=== PATIENT | female | born 1965 | race Caucasian/White ===

== ENCOUNTER 2016-12-08 16:35 | Emergency (ER) | payer OTHER ==
[2016-12-08 16:41] VITALS: BP 149/83; PULSE 74; TEMP 97.8; BMI 27.8
--- NOTE | 2016-12-08 17:30 | PDOC ---
History of Present Illness - General Chief Complaint: Injury Stated Complaint: PAIN Time Seen by Provider: 12/08/16 16:58 History Source: Patient Exam Limitations: No Limitations - History of Present Illness Initial Comments: 12/08/16 17:23 51 yr female with pain to left knee for one week. 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 Pt denies trauma, no fall. Lower Extremity Pain Location: left: knee Lower Ext. Injury Location - Specific Injury Location Knees: left pain Past History - Past Medical History Allergies/Adverse Reactions: Allergies Allergy/AdvReac Type Severity Reaction Status Date / Time Anesthetics - Amide Type Allergy Severe Rash Verified 12/08/16 16:38 Anesthetics - Maria A Type- Allergy Severe Rash Verified 12/08/16 16:38 Parabens [Anesthetics - Maria A Type] clindamycin Allergy Severe Rash Verified 12/08/16 16:38 codeine [Codeine] Allergy Severe Rash Verified 12/08/16 16:38 Penicillins Allergy Severe Rash Verified 12/08/16 16:38 Home Medications: Ambulatory Orders Losartan Potassium [Cozaar -] 100 mg PO DAILY 03/21/14 Simvastatin [Zocor -] 80 mg PO HS 03/21/14 Diphenhydramine HCl [Benadryl -] 25 mg PO Q6H 07/20/15 Hydrochlorothiazide [Hctz -] 25 mg PO DAILY 07/20/15 Acetaminophen/Caffeine/Butalb [Fioricet -] 1 tab PO Q6H #32 tablet MDD 4 Methocarbamol [Robaxin -] 500 mg PO TID #30 tablet 05/24/16 Naproxen [Naprosyn -] 500 mg PO BID PRN #14 tablet 12/08/16 HTN: Yes Hypercholesterolemia: Yes Suicide Attempt (Hx): No Other medical history: scoliosis - Family Disease History Family Disease History: Heart Disease: Father ([place]), Other: Mother (HTN), Brother (HTN), Sister (HTN) - Reproductive History Uterine Fibroids: Yes - Immunization History Immunization Up to Date: No - Psycho/Social/Smoking Cessation Hx Anxiety: No Suicidal Ideation: No Smoking Status: No Smoking History: Never smoked Number of Cigarettes Smoked Daily: 0 Information on smoking cessation initiated: No Hx Alcohol Use: No Drug/Substance Use Hx: No Substance Use Type: None Review of Systems - Review of Systems Able to Perform ROS?: Yes Is the patient limited Japanese proficient: No Constitutional: No: Symptoms Reported HEENTM: No: Symptoms Reported Respiratory: No: Symptoms reported Cardiac (ROS): No: Symptoms Reported ABD/GI: No: Symptoms Reported Musculoskeletal: Yes: Symptoms Reported Integumentary: No: Symptoms Reported Neurological: No: Symptoms reported *Physical Exam - Vital Signs Last Vital Signs Temp Pulse Resp BP Pulse Ox 97.8 F 74 18 149/83 100 12/08/16 16:38 12/08/16 16:38 12/08/16 16:38 12/08/16 16:38 12/08/16 16:38 - Physical Exam General Appearance: Yes: Nourished, Appropriately Dressed HEENT: positive: EOMI, JORGE, Normal ENT Inspection, TMs Normal, Pharynx Normal Neck: positive: Supple. negative: Tender Respiratory/Chest: positive: Lungs Clear, Normal Breath Sounds Cardiovascular: positive: Regular Rhythm, Regular Rate Gastrointestinal/Abdominal: positive: Normal Bowel Sounds, Soft Procedures - Splinting Pre-Made Type: knee immobilizer ED Treatment Course - RADIOLOGY Radiology Studies Ordered: Category Date Time Status KNEE 3 POS-LEFT [RAD] Stat Radiology 12/08/16 17:11 Ordered Medical Decision Making - Medical Decision Making 12/08/16 17:27 cc: left knee pain for one week no trauma will xray to r/o fracture pt is ambulatory no distress 12/08/16 17:[address] knee immobilizer naprosyn for pain follow up with the orthopedist pt aware of plan of care all questions asked and answered 12/08/16 18:29 *DC/Admit/Observation/Transfer Diagnosis at time of Disposition: Knee pain, left Qualifiers: Chronicity: acute Qualified Code(s): M25.562 - Pain in left knee - Discharge Dispostion Disposition: HOME Condition at time of disposition: Good - Prescriptions Prescriptions: Naproxen [Naprosyn -] 500 mg PO BID PRN #14 tablet PRN Reason: Pain - Referrals Referrals: Edilma Colón NP [Primary Care Provider] - Wilfrid Castle MD [Staff Physician] - - Patient Instructions Additional Instructions: follow with the orthopedist for follow up in 5-7 days take naprosyn for pain remove the splint to sleep and bathe use splint to help with ambulation for 3 days
== END 2016-12-08 21:12 | disposition home or self-care (01) ==
LOC: JERFT 16:35
PROC: 2W3MX1Z Immobilization of Left Lower Extremity using Splint (ICD-10-PCS; principal; 2016-12-08)
DX: M25.562 Pain in left knee (principal); I10 Essential (primary) hypertension; E78.00 Pure hypercholesterolemia, unspecified; M41.9 Scoliosis, unspecified
CPT/HCPCS: 29530; 73562-TC-LT; 99281-25

== ENCOUNTER 2018-02-22 11:10 | Observation (INO) | payer OTHER ==
[2018-02-22 11:32] VITALS: BMI 27.4
--- NOTE | 2018-02-22 12:20 | PDOC ---
History of Present Illness <Alyssa Nash - Last Filed: 02/22/18 15:38> - History of Present Illness Initial Comments: 02/22/18 12:20 Ms. Haro is a 52 yo female w/ pmh of hypertension, HLD, and ovarian cysts who presents complaining of elevated blood pressure per home monitor (180's systolic) with coinciding shortness of breath with chest pressure she describes as tight. She also reports dry cough at this time. Last night she took extra of her home BP medications and BP decreased to 160's. When she woke up this morning it was elevated again. She called her PCP at this time who suggested she present to ER for evaluation. She denies any further symptoms of chest pain/ pressure at this time. The patient denies headache and dizziness. Denies fever, chills, nausea, vomit, diarrhea and constipation. Denies dysuria, frequency, urgency and hematuria. 02/22/18 15:28 <Bonifacio Arthur - Last Filed: 02/22/18 15:58> - General Chief Complaint: Blood Pressure Problem Stated Complaint: BLOOD PRESSURE PROBLEM Time Seen by Provider: 02/22/18 12:19 Past History <Alyssa Nash - Last Filed: 02/22/18 15:38> - Past Medical History COPD: No HTN: Yes Hypercholesterolemia: Yes Other medical history: BACK PAIN, ARITHRITIS - Family Disease History Family Disease History: Heart Disease: Father ([place]), Other: Mother (HTN), Brother (HTN), Sister (HTN) - Reproductive History Uterine Fibroids: Yes - Immunization History Immunization Up to Date: No - Suicide/Smoking/Psychosocial Hx Smoking Status: No Smoking History: Never smoked Have you smoked in the past 12 months: No Number of Cigarettes Smoked Daily: 0 Information on smoking cessation initiated: No Hx Alcohol Use: No Drug/Substance Use Hx: No Substance Use Type: None <Bonifacio Arthur - Last Filed: 02/22/18 15:58> - Past Medical History Allergies/Adverse Reactions: Allergies Allergy/AdvReac Type Severity Reaction Status Date / Time Anesthetics - Amide Type Allergy Severe Rash Verified 02/22/18 11:28 Anesthetics - Maria A Type- Allergy Severe Rash Verified 02/22/18 11:28 Parabens [Anesthetics - Maria A Type] clindamycin Allergy Severe Rash Verified 02/22/18 11:28 codeine [Codeine] Allergy Severe Rash Verified 02/22/18 11:28 Penicillins Allergy Severe Rash Verified 02/22/18 11:28 Home Medications: Ambulatory Orders Losartan Potassium [Cozaar -] 100 mg PO DAILY 03/21/14 Simvastatin [Zocor -] 80 mg PO HS 03/21/14 Diphenhydramine HCl [Benadryl -] 25 mg PO Q6H 07/20/15 Hydrochlorothiazide [Hctz -] 25 mg PO DAILY 07/20/15 Acetaminophen/Caffeine/Butalb [Fioricet -] 1 tab PO Q6H #32 tablet MDD 4 Methocarbamol [Robaxin -] 500 mg PO TID #30 tablet 05/24/16 Naproxen [Naprosyn -] 500 mg PO BID PRN #14 tablet 12/08/16 Review of Systems - Review of Systems Comments:: 02/22/18 12:22 GENERAL/CONSTITUTIONAL: No fever or chills. No weakness. HEAD, EYES, EARS, NOSE AND THROAT: No change in vision. No ear pain or discharge. No sore throat. CARDIOVASCULAR: +Shortness of breath with chest pressure/tightness as reported. RESPIRATORY: No cough, wheezing, or hemoptysis. GASTROINTESTINAL: No nausea, vomiting, diarrhea or constipation. GENITOURINARY: No dysuria, frequency, or change in urination. MUSCULOSKELETAL: No joint or muscle swelling or pain. No neck or back pain. SKIN: No rash NEUROLOGIC: No headache, vertigo, loss of consciousness, or change in strength/ sensation. ENDOCRINE: No increased thirst. No abnormal weight change HEMATOLOGIC/LYMPHATIC: No anemia, easy bleeding, or history of blood clots. ALLERGIC/IMMUNOLOGIC: No hives or skin allergy. <Bonifacio Arthur - Last Filed: 02/22/18 15:58> *Physical Exam - Vital Signs Last Vital Signs Temp Pulse Resp BP Pulse Ox 98.5 F 75 18 162/99 100 02/22/18 11:29 02/22/18 11:29 02/22/18 11:29 02/22/18 11:29 02/22/18 11:29 <Alyssa Nash - Last Filed: 02/22/18 15:38> - Vital Signs Last Vital Signs Temp Pulse Resp BP Pulse Ox 98.5 F 75 18 162/99 100 02/22/18 11:29 02/22/18 11:29 02/22/18 11:29 02/22/18 11:29 02/22/18 11:29 - Physical Exam Comments: 02/22/18 12:22 GENERAL: Awake, alert, and fully oriented, in no acute distress HEAD: No signs of trauma, normocephalic, atraumatic EYES: PERRLA, EOMI, sclera anicteric, conjunctiva clear ENT: Auricles normal inspection, hearing grossly normal, nares patent, oropharynx clear without exudates. Moist mucosa NECK: Normal ROM, supple, no lymphadenopathy, JVD, or masses LUNGS: No distress, speaks full sentences, clear to auscultation bilaterally HEART: Regular rate and rhythm, normal S1 and S2, no murmurs, rubs or gallops, peripheral pulses normal and equal bilaterally. ABDOMEN: Soft, nontender, normoactive bowel sounds. No guarding, no rebound. No masses EXTREMITIES: Normal inspection, Normal range of motion, no edema. No clubbing or cyanosis. NEUROLOGICAL: Cranial nerves II through XII grossly intact. Normal speech, normal gait, no focal sensorimotor deficits SKIN: Warm, Dry, normal turgor, no rashes or lesions noted. <Bonifacio Arthur - Last Filed: 02/22/18 15:58> Heart Score/ECG Review - History History: Moderately suspicious - Electrocardiogram EKG: Normal - Age Age: 45-65 - Risk Factors Risk Factors Heart Score: Yes Hx Hypercholesterolemia, Yes Hx Hypertension, Yes Positive family hx of cardiac disease Based on the list above the patient has:: >/=3 risk factors or Hx atherosclerotic disease - Troponin Troponin: </= normal limit - Score Heart Score - Total: 4 <Bonifacio Arthur - Last Filed: 02/22/18 15:58> ED Treatment Course - LABORATORY CBC & Chemistry Diagram: 02/22/18 14:10 02/22/18 14:10 - ADDITIONAL ORDERS Additional order review: Laboratory Results 02/22/18 02/22/18 14:10 14:10 Sodium 140 Potassium 4.2 Chloride 105 Carbon Dioxide 32 Anion Gap 3 L BUN 11 Creatinine 0.8 Creat Clearance w eGFR > 60 Random Glucose 137 H Calcium 9.2 Total Bilirubin 0.5 D AST 22 ALT 40 Alkaline Phosphatase 100 Creatine Kinase 185 Creatine Kinase Index 0.9 CK-MB (CK-2) 1.847 Troponin I < 0.02 Total Protein 7.7 Albumin 4.3 Urine Color Straw Urine Appearance Clear Urine pH 7.0 Ur Specific [place] 1.010 Urine Protein Negative Urine Glucose (UA) Negative Urine Ketones Negative Urine Blood Negative Urine Nitrite Negative Urine Bilirubin Negative Urine Urobilinogen Negative Ur Leukocyte Esterase Negative 02/22/18 14:10 RBC 4.67 MCV 86.9 MCHC 34.3 RDW 13.5 MPV 9.7 Neutrophils % 52.4 Lymphocytes % 42.1 H Monocytes % 4.5 Eosinophils % 0.5 Basophils % 0.5 - RADIOLOGY Radiology Studies Ordered: Category Date Time Status CHEST PA & LAT [RAD] Stat Radiology 02/22/18 13:43 Taken <Alyssa Nash - Last Filed: 02/22/18 15:38> - LABORATORY CBC & Chemistry Diagram: 02/22/18 14:10 02/22/18 14:10 <Bonifacio Arthur - Last Filed: 02/22/18 15:58> Medical Decision Making - Medical Decision Making 02/22/18 15:55 Ms. Haro is a 52 yo female w/ pmh as described who presents for evaluation of chest pressure / tightness yesterday. Patient reports resolution of symptoms at this time however history is very concerning. Labs grossly wnl as below. HEART score 4. Patient admitted to [facility] obs under Dr. Ruffin for further evaluation. Laboratory Results - last 24 hr 02/22/18 02/22/18 02/22/18 14:10 14:10 14:10 WBC 4.9 D RBC 4.67 Hgb 13.9 Hct 40.6 MCV 86.9 MCH 29.8 MCHC 34.3 RDW 13.5 Plt Count 221 MPV 9.7 Neutrophils % 52.4 Lymphocytes % 42.1 H Monocytes % 4.5 Eosinophils % 0.5 Basophils % 0.5 Sodium 140 Potassium 4.2 Chloride 105 Carbon Dioxide 32 Anion Gap 3 L BUN 11 Creatinine 0.8 Creat Clearance w eGFR > 60 Random Glucose 137 H Calcium 9.2 Total Bilirubin 0.5 D AST 22 ALT 40 Alkaline Phosphatase 100 Creatine Kinase 185 Creatine Kinase Index 0.9 CK-MB (CK-2) 1.847 Troponin I < 0.02 Total Protein 7.7 Albumin 4.3 Urine Color Straw Urine Appearance Clear Urine pH 7.0 Ur Specific [place] 1.010 Urine Protein Negative Urine Glucose (UA) Negative Urine Ketones Negative Urine Blood Negative Urine Nitrite Negative Urine Bilirubin Negative Urine Urobilinogen Negative Ur Leukocyte Esterase Negative <Bonifacio Arthur - Last Filed: 02/22/18 15:58> *DC/Admit/Observation/Transfer - Discharge Dispostion Admit: Yes <Alyssa Nash - Last Filed: 02/22/18 15:38> - Discharge Dispostion Admit: Yes <Bonifacio Arthur - Last Filed: 02/22/18 15:58> Diagnosis at time of Disposition: Essential hypertension Chest pain Qualifiers: Chest pain type: unspecified Qualified Code(s): R07.9 - Chest pain, unspecified - Referrals Referrals: ON STAFF,NOT [Primary Care Provider] - - Patient Instructions - Post Discharge Activity
[2018-02-22 14:31] LABS: BASO % 0.5 % (0-2.0); EOS % 0.5 % (0-4.5); HEMATOCRIT 40.6 % (32.4-45.2); HEMOGLOBIN 13.9 GM/dL (10.7-15.3); LYMPH % 42.1 % (8-40); MCH 29.8 pg (25.7-33.7); MCHC 34.3 g/dl (32.0-36.0); MEAN CELL VOLUME 86.9 fl (80-96); MEAN PLT VOLUME 9.7 fl (7.5-11.1); MONO % 4.5 % (3.8-10.2); NEUT % 52.4 % (42.8-82.8); PLATELET COUNT 221 K/MM3 (134-434); RBC 4.67 M/mm3 (3.60-5.2); RDW 13.5 % (11.6-15.6); WHITE BLOOD COUNT 4.9 K/mm3 (4.0-10.0)
[2018-02-22 14:46] LABS: URINE APPEARANCE CLEAR; URINE BILIRUBIN NEGATIVE (<2.0 mg/dL); URINE BLOOD NEGATIVE (NEGATIVE); URINE COLOR STRAW; URINE GLUCOSE (UA) NEGATIVE (NEGATIVE); URINE KETONE NEGATIVE (NEGATIVE); URINE LEUK ESTERASE NEGATIVE (NEGATIVE); URINE NITRITE NEGATIVE (NEGATIVE); URINE PROTEIN NEGATIVE (NEGATIVE); URINE UROBILINOGEN NEGATIVE mg/dL (0.2-1.0)
[2018-02-22 14:48] LABS: ALBUMIN 4.3 g/dl (3.4-5.0); ANION GAP 3 (8-16); BILIRUBIN,TOTAL 0.5 mg/dL (0.2-1.0); BLOOD UREA NITROGEN 11 mg/dL (7-18); CALCIUM 9.2 mg/dL (8.5-10.1); CHLORIDE 105 mmol/L (98-107); CO2 32 mmol/L (21-32); CREATININE 0.8 mg/dL (0.55-1.02); GLUCOSE,RANDOM 137 mg/dL (74-106); POTASSIUM 4.2 mmol/L (3.5-5.1); SGOT/AST 22 U/L (15-37); SGPT/ALT 40 U/L (12-78); SODIUM 140 mmol/L (136-145); TOT PROT 7.7 g/dl (6.4-8.2)
[2018-02-22 14:51] LABS: ALK PHOS 100 U/L (45-117)
--- NOTE | 2018-02-22 15:19 | PDOC ---
Attending Attestation - Resident Resident Name: Bonifacio Arthur - ED Attending Attestation I have performed the following: I have examined & evaluated the patient, The case was reviewed & discussed with the resident, I agree w/resident's findings & plan, Exceptions are as noted - Medical Decision Making 02/22/18 15:16 52-year-old female history of hypertension hyperlipidemia and family history of heart disease here today complaining of chest pressure with associated shortness of breath and diaphoresis last p.m. At the time patient checked her blood pressure which is elevated to 180 systolic. States she had seen her PCP 1 week ago and was called to tell that her cholesterol was elevated despite being on atorvastatin 80 mg but has not been able to return. He states that she is chest pain-free but was concerned because her blood pressure has been persistently elevated over the last 24 hours. Denies headache no vision changes no other complaints Exam is unremarkable Differential includes symptomatic hypertension, end organ damage such as renal failure, anemia, anginal equivalent, plan EKG chest x-ray labs with troponin we' ll give the patient aspirin. <Alyssa Nash - Last Filed: 02/22/18 15:38> - HPI HPI: 02/22/18 15:43 Pt is a 52 yo F with a PMHx of HTN, HLD, Back pain, Arthritis who presents to the ED with chest pressure for the past day. Patient reports experiencing back pain and chest pressure, 7/10in severity, associated with SOB and diaphoresis last night. Patient measured her BP which was elevated to 185/101. Patient took double dose of BP medications last night. Patient called his PCP and was sent to the ED for further evaluation. Family Hx: Uncle, father, brother with cardiac disease. - Physicial Exam PE: 02/22/18 15:43 GENERAL: Awake, alert, and fully oriented, in no acute distress HEAD: No signs of trauma EYES: PERRLA, EOMI, sclera anicteric, conjunctiva clear ENT: Auricles normal inspection, nares patent, Moist mucosa NECK: Normal ROM, supple, no lymphadenopathy, JVD, or masses LUNGS: Breath sounds equal, clear to auscultation bilaterally. No wheezes, and no crackles HEART: Regular rate and rhythm, normal S1 and S2, no murmurs, rubs or gallops ABDOMEN: Soft, nontender, normoactive bowel sounds. No guarding, no rebound. No masses EXTREMITIES: Normal range of motion, no edema. No clubbing or cyanosis. No cords, erythema, or tenderness NEUROLOGICAL: Normal speech SKIN: Warm, Dry, normal turgor, no rashes or lesions noted. - Medical Decision Making 02/22/18 15:43 Documentation prepared by Bertha Smith, acting as medical case manager for Alyssa Nash MD, /DO. <Bertha Smith - Last Filed: 02/22/18 15:43> Heart Score/ECG Review - History History: Highly suspicious - Electrocardiogram EKG: Normal - Age Age: 45-65 - Risk Factors Risk Factors Heart Score: Yes Hx Hypercholesterolemia, Yes Hx Hypertension, Yes Positive family hx of cardiac disease Based on the list above the patient has:: >/=3 risk factors or Hx atherosclerotic disease - Troponin Troponin: </= normal limit - Score Heart Score - Total: 5 #1 General ECG Interpretation: Sinus Rhythm, Normal Rate (71), Normal Intervals, No acute ischemic changes <Alyssa Nash - Last Filed: 02/22/18 15:38>
--- NOTE | 2018-02-22 20:30 | HP ---
Admitting History and Physical - Primary Care Physician PCP: Frankie Ruffin - Admission History of Present Illness: 52 yo female w/ pmh of hypertension, HLD, and ovarian cysts who presents complaining of elevated blood pressure per home monitor (180's systolic) with coinciding shortness of breath with chest pressure she describes as tight. She also reports dry cough at this time. Last night she took extra of her home BP medications and BP decreased to 160's. When she woke up this morning it was elevated again. She called her PCP at this time who suggested she present to ER for evaluation. She denies any further symptoms of chest pain/pressure at this time - Past Medical History Cardiovascular: Yes: HTN, Hyperlipdemia - Smoking History Smoking history: Never smoked Have you smoked in the past 12 months: No Aproximately how many cigarettes per day: 0 - Alcohol/Substance Use Hx Alcohol Use: No Home Medications - Allergies Allergies/Adverse Reactions: Allergies Allergy/AdvReac Type Severity Reaction Status Date / Time Anesthetics - Amide Type Allergy Severe Rash Verified 02/22/18 11:28 Anesthetics - Maria A Type- Allergy Severe Rash Verified 02/22/18 11:28 Parabens [Anesthetics - Maria A Type] clindamycin Allergy Severe Rash Verified 02/22/18 11:28 codeine [Codeine] Allergy Severe Rash Verified 02/22/18 11:28 Penicillins Allergy Severe Rash Verified 02/22/18 11:28 - Home Medications Home Medications: Ambulatory Orders Losartan Potassium [Cozaar -] 100 mg PO DAILY 03/21/14 Simvastatin [Zocor -] 80 mg PO HS 03/21/14 Diphenhydramine HCl [Benadryl -] 25 mg PO Q6H 07/20/15 Hydrochlorothiazide [Hctz -] 25 mg PO DAILY 07/20/15 Acetaminophen/Caffeine/Butalb [Fioricet -] 1 tab PO Q6H #32 tablet MDD 4 Methocarbamol [Robaxin -] 500 mg PO TID #30 tablet 05/24/16 Naproxen [Naprosyn -] 500 mg PO BID PRN #14 tablet 12/08/16 Physical Examination Vital Signs: Vital Signs Temperature 98.5 F 02/22/18 11:29 Pulse Rate 75 02/22/18 11:29 Respiratory Rate 18 02/22/18 11:29 Blood Pressure 162/99 02/22/18 11:29 O2 Sat by Pulse Oximetry (%) 100 02/22/18 11:29 Constitutional: Yes: No Distress HENT: Yes: Atraumatic Neck: Yes: Supple Cardiovascular: Yes: Regular Rate and Rhythm Respiratory: Yes: CTA Bilaterally Gastrointestinal: Yes: Normal Bowel Sounds Extremities: Yes: WNL Neurological: Yes: Alert, Oriented Labs: CBC, BMP 02/22/18 14:10 02/22/18 14:10 Problem List - Problems (1) Chest pain Assessment/Plan: tele monitoring fu cardiac enzymes cardiology consult Code(s): R07.9 - CHEST PAIN, UNSPECIFIED Qualifiers: Chest pain type: unspecified Qualified Code(s): R07.9 - Chest pain, unspecified (2) Essential hypertension Assessment/Plan: will monitor on meds Code(s): I10 - ESSENTIAL (PRIMARY) HYPERTENSION Assessment/Plan Laboratory Tests 02/22/18 02/22/18 02/22/18 14:10 14:10 14:10 WBC 4.9 D RBC 4.67 Hgb 13.9 Hct 40.6 MCV 86.9 MCH 29.8 MCHC 34.3 RDW 13.5 Plt Count 221 MPV 9.7 Neutrophils % 52.4 Lymphocytes % 42.1 H Monocytes % 4.5 Eosinophils % 0.5 Basophils % 0.5 Sodium 140 Potassium 4.2 Chloride 105 Carbon Dioxide 32 Anion Gap 3 L BUN 11 Creatinine 0.8 Creat Clearance w eGFR > 60 Random Glucose 137 H Calcium 9.2 Total Bilirubin 0.5 D AST 22 ALT 40 Alkaline Phosphatase 100 Creatine Kinase 185 Creatine Kinase Index 0.9 CK-MB (CK-2) 1.847 Troponin I < 0.02 Total Protein 7.7 Albumin 4.3 Urine Color Straw Urine Appearance Clear Urine pH 7.0 Ur Specific [place] 1.010 Urine Protein Negative Urine Glucose (UA) Negative Urine Ketones Negative Urine Blood Negative Urine Nitrite Negative Urine Bilirubin Negative Urine Urobilinogen Negative Ur Leukocyte Esterase Negative Active Medications Generic Name Dose Route Start Last Admin Trade Name Freq PRN Reason Stop Dose Admin Acetaminophen 650 mg 02/22/18 21:53 Tylenol - PO Q6H PRN FEVER Amlodipine Besylate 10 mg 02/22/18 20:45 02/23/18 12:32 Norvasc - PO 10 mg DAILY XIANG Administration Atorvastatin Calcium 40 mg 02/22/18 22:00 02/22/18 22:01 Lipitor - PO Not Given HS XIANG Hydrochlorothiazide 25 mg 02/23/18 10:00 02/23/18 12:32 Hctz - PO 25 mg DAILY XIANG Administration Losartan Potassium 100 mg 02/23/18 10:00 02/23/18 12:32 Cozaar - PO 100 mg DAILY XIANG Administration Methocarbamol 500 mg 02/22/18 22:00 02/23/18 13:56 Robaxin - PO 500 mg TID XIANG Administration
[2018-02-22] MEDS ORDERED: amLODIPine BESYLATE 5 MG TABLET (FP) ONE (20:35)
[2018-02-22] MEDS: amLODIPine BESYLATE 10 MG TABLET (FP) PO SCH (20:41)
[2018-02-22] MEDS ORDERED: ACETAMINOPHEN 325 MG TABLET (FP) PO PRN (21:53)
[2018-02-22] MEDS: ATORVASTATIN CA 40 MG TABLET (FP) PO SCH (22:01)
[2018-02-22] MEDS ORDERED: METHOCARBAMOL 500 MG TABLET ONE (23:27)
[2018-02-22] MEDS: METHOCARBAMOL 500 MG TABLET PO SCH (23:38)
--- NOTE | 2018-02-22 23:43 | EKG ---
Test Reason : Blood Pressure : / mmHG Vent. Rate : 071 BPM Atrial Rate : 071 BPM P-R Int : 186 ms QRS Dur : 068 ms QT Int : 398 ms P-R-T Axes : 053 029 020 degrees QTc Int : 432 ms NORMAL SINUS RHYTHM NORMAL ECG WHEN COMPARED WITH ECG OF 20-AUG-2014 02:39, NO SIGNIFICANT CHANGE WAS FOUND Confirmed by KETURAH HUERTA MD ([id number]) on 02/22/2018 11:42:52 PM Referred By: Confirmed By:KETURAH HUERTA MD
[2018-02-23] MEDS: METHOCARBAMOL 500 MG TABLET PO SCH ×3 (06:31→22:27)
[2018-02-23 09:32] LABS: BASO % 0.4 % (0-2.0); HEMATOCRIT 40.3 % (32.4-45.2); HEMOGLOBIN 13.9 GM/dL (10.7-15.3); LYMPH % 47.3 % (8-40); MCH 29.7 pg (25.7-33.7); MCHC 34.4 g/dl (32.0-36.0); MEAN CELL VOLUME 86.6 fl (80-96); MEAN PLT VOLUME 9.6 fl (7.5-11.1); MONO % 5.9 % (3.8-10.2); NEUT % 45.4 % (42.8-82.8); PLATELET COUNT 215 K/MM3 (134-434); RBC 4.66 M/mm3 (3.60-5.2); RDW 13.4 % (11.6-15.6); WHITE BLOOD COUNT 4.7 K/mm3 (4.0-10.0)
[2018-02-23 10:15] LABS: ALBUMIN 4.3 g/dl (3.4-5.0); ALK PHOS 97 U/L (45-117); ANION GAP 8 (8-16); BILIRUBIN,TOTAL 0.8 mg/dL (0.2-1.0); BLOOD UREA NITROGEN 11 mg/dL (7-18); CALCIUM 9.6 mg/dL (8.5-10.1); CHLORIDE 103 mmol/L (98-107); CO2 30 mmol/L (21-32); CREATININE 0.8 mg/dL (0.55-1.02); GLUCOSE,RANDOM 145 mg/dL (74-106); SGOT/AST 23 U/L (15-37); SGPT/ALT 37 U/L (12-78); SODIUM 141 mmol/L (136-145); TOT PROT 7.7 g/dl (6.4-8.2)
--- NOTE | 2018-02-23 10:29 | CON.CARD ---
Consult Consult Specialty:: Cardiology Referred by:: Dr. Ruffin Reason for Consultation:: Cardiac evaluation - History of Present Illness Chief Complaint: Chest pain History of Present Illness: Patient is a 52 year old female with underlying history of hypertension, hypercholesterolemia and ovarian cyst who presents with elevated blood pressure up to systolic pressure of 180's. She complained of mid sternal chest pressure while hypertensive episode. She also complained of mild shortness of breath. She denies palpitations. Currently, she appears asymptomatic. She denies paroxysmal nocturnal dyspnea or orthopnea. She denies fever or chills. She denies nausea, vomiting, diarrhea or abdominal pain. She denies headache or lightheadedness. - History Source History Provided By: Patient, Medical Record Limitations to Obtaining History: No Limitations - Past Medical History Cardio/Vascular: Yes: HTN, Hyperlipdemia Reproductive: Yes: Other (Ovarian cyst) Endocrine: Yes: Other (Pre-diabetes) - Past Surgical History Past Surgical History: Yes: Hysterectomy - Alcohol/Substance Use Hx Alcohol Use: Yes (Social) - Smoking History Smoking history: Never smoked Have you smoked in the past 12 months: No Aproximately how many cigarettes per day: 0 Home Medications - Allergies Allergies/Adverse Reactions: Allergies Allergy/AdvReac Type Severity Reaction Status Date / Time Anesthetics - Amide Type Allergy Severe Rash Verified 02/22/18 11:28 Anesthetics - Maria A Type- Allergy Severe Rash Verified 02/22/18 11:28 Parabens [Anesthetics - Maria A Type] clindamycin Allergy Severe Rash Verified 02/22/18 11:28 codeine [Codeine] Allergy Severe Rash Verified 02/22/18 11:28 Penicillins Allergy Severe Rash Verified 02/22/18 11:28 - Home Medications Home Medications: Ambulatory Orders Losartan Potassium [Cozaar -] 100 mg PO DAILY 03/21/14 Simvastatin [Zocor -] 80 mg PO HS 03/21/14 Diphenhydramine HCl [Benadryl -] 25 mg PO Q6H 07/20/15 Hydrochlorothiazide [Hctz -] 25 mg PO DAILY 07/20/15 Acetaminophen/Caffeine/Butalb [Fioricet -] 1 tab PO Q6H #32 tablet MDD 4 Methocarbamol [Robaxin -] 500 mg PO TID #30 tablet 05/24/16 Naproxen [Naprosyn -] 500 mg PO BID PRN #14 tablet 01/23/17 Family Disease History - Family Disease History Family Disease History: Diabetes: Father (HTN, CABG), Heart Disease: Father, Other: Father, Mother (HTN) Other Family History: CAD, [place] Review of Systems - Review of Systems Constitutional: denies: Chills, Fever Cardiovascular: reports: Chest Pain, Shortness of Breath. denies: Palpitations Respiratory: reports: Cough, SOB. denies: Hemoptysis, Orthopnea, PND Gastrointestinal: denies: Abdominal Pain, Constipation, Diarrhea, Melena, Nausea , Rectal Bleeding, Vomiting Musculoskeletal: reports: Back Pain Neurological: denies: Dizziness, Headache, Seizure, Syncope Vital Signs: Vital Signs Temperature 98.5 F 02/22/18 11:29 Pulse Rate 69 02/23/18 05:56 Respiratory Rate 18 02/23/18 05:56 Blood Pressure 141/77 02/23/18 05:56 O2 Sat by Pulse Oximetry (%) 100 02/23/18 05:56 Eyes: Yes: PERRL HENT: Yes: Atraumatic Neck: Yes: Supple Respiratory: Yes: CTA Bilaterally Gastrointestinal: Yes: Normal Bowel Sounds, Soft. No: Tenderness Cardiovascular: Yes: Regular Rate and Rhythm JVD: No Carotid Bruit: No PMI: Non-Displaced Heart Sounds: Yes: S1, S2 Edema: No - Other Data Labs, Other Data: CBC, BMP 02/23/18 09:06 02/23/18 09:06 Troponin, BNP 02/22/18 02/23/18 14:10 00:01 Troponin I < 0.02 < 0.02 Laboratory Results - last 24 hr 02/22/18 02/22/18 02/22/18 14:10 14:10 14:10 WBC 4.9 D RBC 4.67 Hgb 13.9 Hct 40.6 MCV 86.9 MCH 29.8 MCHC 34.3 RDW 13.5 Plt Count 221 MPV 9.7 Neutrophils % 52.4 Lymphocytes % 42.1 H Monocytes % 4.5 Eosinophils % 0.5 Basophils % 0.5 Sodium 140 Potassium 4.2 Chloride 105 Carbon Dioxide 32 Anion Gap 3 L BUN 11 Creatinine 0.8 Creat Clearance w eGFR > 60 Random Glucose 137 H Calcium 9.2 Total Bilirubin 0.5 D AST 22 ALT 40 Alkaline Phosphatase 100 Creatine Kinase 185 Creatine Kinase Index 0.9 CK-MB (CK-2) 1.847 Troponin I < 0.02 Total Protein 7.7 Albumin 4.3 Urine Color Straw Urine Appearance Clear Urine pH 7.0 Ur Specific [place] 1.010 Urine Protein Negative Urine Glucose (UA) Negative Urine Ketones Negative Urine Blood Negative Urine Nitrite Negative Urine Bilirubin Negative Urine Urobilinogen Negative Ur Leukocyte Esterase Negative 02/23/18 02/23/18 02/23/18 00:01 09:06 09:06 WBC 4.7 RBC 4.66 Hgb 13.9 Hct 40.3 MCV 86.6 MCH 29.7 MCHC 34.4 RDW 13.4 Plt Count 215 MPV 9.6 Neutrophils % 45.4 Lymphocytes % 47.3 H Monocytes % 5.9 Eosinophils % 1.0 D Basophils % 0.4 Sodium 141 Potassium 4.0 Chloride 103 Carbon Dioxide 30 Anion Gap 8 BUN 11 Creatinine 0.8 Creat Clearance w eGFR > 60 Random Glucose 145 H Calcium 9.6 Total Bilirubin 0.8 D AST 23 ALT 37 Alkaline Phosphatase 97 Creatine Kinase 158 Creatine Kinase Index 0.6 CK-MB (CK-2) < 1.000 Troponin I < 0.02 Total Protein 7.7 Albumin 4.3 Urine Color Urine Appearance Urine pH Ur Specific [place] Urine Protein Urine Glucose (UA) Urine Ketones Urine Blood Urine Nitrite Urine Bilirubin Urine Urobilinogen Ur Leukocyte Esterase Normal sinus rhythm with no ST-T abnormality Imaging - Results Chest X-ray: Report Reviewed (Unremarkable) EKG: Report Reviewed Problem List - Problems (1) Hypercholesterolemia Code(s): E78.00 - PURE HYPERCHOLESTEROLEMIA, UNSPECIFIED (2) Chest pain Code(s): R07.9 - CHEST PAIN, UNSPECIFIED Qualifiers: Chest pain type: unspecified Qualified Code(s): R07.9 - Chest pain, unspecified (3) Essential hypertension Code(s): I10 - ESSENTIAL (PRIMARY) HYPERTENSION Assessment/Plan 1. Hypertension - labile 2. Chest pain syndrome probably due to above 3. Hypercholesterolemia 4. Vertebral disc disease PLAN: 1. Continue Losartan, HCTZ and agree with addition of Amlodipine 2. Continue Atrovastatin 40 mg once a day instead of Simvastatin 3. Transthoracic echocardiography to assess LV/RV and valvular function 4. Analgesics PRN 5. Follow fasting lipid panel, but can be done as outpatient If above negative and BP controlled, discharge planning and follow up as outpatient Esvin Craig MD
[2018-02-23] MEDS: LOSARTAN POTASSIUM 50 MG TABLET (FP) PO SCH (12:32)
[2018-02-23] MEDS: HYDROCHLOROTHIAZIDE 25 MG TABLET (FP) PO SCH (12:32)
[2018-02-23] MEDS: amLODIPine BESYLATE 10 MG TABLET (FP) PO SCH (12:32)
--- NOTE | 2018-02-23 17:38 | DS ---
Physical Examination Vital Signs: Vital Signs Temperature 98.4 F 02/23/18 12:23 Pulse Rate 77 02/23/18 12:23 Respiratory Rate 18 02/23/18 16:19 Blood Pressure 127/77 02/23/18 12:23 O2 Sat by Pulse Oximetry (%) 100 02/23/18 16:19 Constitutional: Yes: No Distress HENT: Yes: Atraumatic Neck: Yes: Supple Cardiovascular: Yes: Regular Rate and Rhythm Respiratory: Yes: CTA Bilaterally Gastrointestinal: Yes: Normal Bowel Sounds Extremities: Yes: WNL Edema: No Peripheral Pulses WNL: Yes Neurological: Yes: Alert, Oriented Labs: CBC, BMP 02/23/18 09:06 02/23/18 09:06 Discharge Summary Reason For Visit: CHEST PAIN Current Active Problems Chest pain (Acute) Essential hypertension (Acute) Hypercholesterolemia (Acute) - Instructions Referrals: ON STAFF,NOT [Non Staff, Medical] - - Home Medications Comprehensive Discharge Medication List: Ambulatory Orders Losartan Potassium [Cozaar -] 100 mg PO DAILY 03/21/14 Simvastatin [Zocor -] 80 mg PO HS 03/21/14 Diphenhydramine HCl [Benadryl -] 25 mg PO Q6H 07/20/15 Hydrochlorothiazide [Hctz -] 25 mg PO DAILY 07/20/15 Acetaminophen/Caffeine/Butalb [Fioricet -] 1 tab PO Q6H #32 tablet MDD 4 Methocarbamol [Robaxin -] 500 mg PO TID #30 tablet 05/24/16 Naproxen [Naprosyn -] 500 mg PO BID PRN #14 tablet 12/08/16 Amlodipine Besylate [Norvasc -] 10 mg PO DAILY #30 tablet 02/23/18 dc
--- NOTE | 2018-02-23 17:48 | PN ---
Progress Note, Physician - Current Medication List Current Medications: Active Medications Acetaminophen (Tylenol -) 650 mg PO Q6H PRN PRN Reason: FEVER Amlodipine Besylate (Norvasc -) 10 mg PO DAILY [facility] Last Admin: 02/23/18 12:32 Dose: 10 mg Atorvastatin Calcium (Lipitor -) 40 mg PO HS [facility] Last Admin: 02/22/18 22:01 Dose: Not Given Hydrochlorothiazide (Hctz -) 25 mg PO DAILY [facility] Last Admin: 02/23/18 12:32 Dose: 25 mg Losartan Potassium (Cozaar -) 100 mg PO DAILY [facility] Last Admin: 02/23/18 12:32 Dose: 100 mg Methocarbamol (Robaxin -) 500 mg PO TID [facility] Last Admin: 02/23/18 13:56 Dose: 500 mg - Objective Vital Signs: Vital Signs Temperature 98.4 F 02/23/18 12:23 Pulse Rate 77 02/23/18 12:23 Respiratory Rate 18 02/23/18 16:19 Blood Pressure 127/77 02/23/18 12:23 O2 Sat by Pulse Oximetry (%) 100 02/23/18 16:19 HENT: Yes: Atraumatic Neck: Yes: Supple Cardiovascular: Yes: Regular Rate and Rhythm Respiratory: Yes: CTA Bilaterally Gastrointestinal: Yes: Normal Bowel Sounds Extremities: Yes: WNL Edema: No Neurological: Yes: Alert, Oriented Labs: CBC, BMP 02/23/18 09:06 02/23/18 09:06 Problem List - Problems (1) Chest pain Assessment/Plan: tele monitoring fu cardiac enzymes..negative echo pending Code(s): R07.9 - CHEST PAIN, UNSPECIFIED Qualifiers: Chest pain type: unspecified Qualified Code(s): R07.9 - Chest pain, unspecified (2) Essential hypertension Assessment/Plan: bp improving Code(s): I10 - ESSENTIAL (PRIMARY) HYPERTENSION
[2018-02-23] MEDS ORDERED: ACETAMINOPHEN 325 MG TABLET (FP) PO PRN (17:55)
[2018-02-23] MEDS: ATORVASTATIN CA 40 MG TABLET (FP) PO SCH (22:27)
[2018-02-24] MEDS: METHOCARBAMOL 500 MG TABLET PO SCH ×2 (05:33→14:13)
[2018-02-24 06:51] VITALS: TEMP 98.7
[2018-02-24] MEDS: HYDROCHLOROTHIAZIDE 25 MG TABLET (FP) PO SCH (09:09)
[2018-02-24] MEDS: amLODIPine BESYLATE 10 MG TABLET (FP) PO SCH (09:09)
[2018-02-24] MEDS: LOSARTAN POTASSIUM 50 MG TABLET (FP) PO SCH (09:09)
[2018-02-24 09:54] VITALS: BP 123/66; PULSE 83
--- NOTE | 2018-02-24 12:40 | DS ---
Physical Examination Vital Signs: Vital Signs Temperature 98.7 F 02/24/18 09:49 Pulse Rate 83 02/24/18 09:49 Respiratory Rate 20 02/24/18 09:49 Blood Pressure 123/66 02/24/18 09:49 O2 Sat by Pulse Oximetry (%) 96 02/24/18 08:00 Constitutional: Yes: No Distress HENT: Yes: Atraumatic Neck: Yes: Supple Cardiovascular: Yes: Regular Rate and Rhythm Respiratory: Yes: CTA Bilaterally Gastrointestinal: Yes: Normal Bowel Sounds Extremities: Yes: WNL Neurological: Yes: Alert, Oriented Labs: CBC, BMP 02/23/18 09:06 02/23/18 09:06 Discharge Summary Reason For Visit: CHEST PAIN Current Active Problems Chest pain (Acute) Essential hypertension (Acute) Hypercholesterolemia (Acute) - Instructions Referrals: ON STAFF,NOT [Non Staff, Medical] - Disposition: HOME - Home Medications Comprehensive Discharge Medication List: Ambulatory Orders Losartan Potassium [Cozaar -] 100 mg PO DAILY 03/21/14 Simvastatin [Zocor -] 80 mg PO HS 03/21/14 Diphenhydramine HCl [Benadryl -] 25 mg PO Q6H 07/20/15 Hydrochlorothiazide [Hctz -] 25 mg PO DAILY 07/20/15 Acetaminophen/Caffeine/Butalb [Fioricet -] 1 tab PO Q6H #32 tablet MDD 4 Methocarbamol [Robaxin -] 500 mg PO TID #30 tablet 05/24/16 Naproxen [Naprosyn -] 500 mg PO BID PRN #14 tablet 12/08/16 Amlodipine Besylate [Norvasc -] 10 mg PO DAILY #30 tablet 02/23/18 in home
--- NOTE | 2018-02-24 14:02 | PN ---
Progress Note, Physician Chief Complaint: Not in distress History of Present Illness: Patient was seen and examined. Awake and alert. Chart was reviewed Denies chest pain, shortness of breath or palpitations - Current Medication List Current Medications: Active Medications Acetaminophen (Tylenol -) 650 mg PO Q6H PRN PRN Reason: FEVER Amlodipine Besylate (Norvasc -) 10 mg PO DAILY [facility] Last Admin: 02/24/18 09:09 Dose: 10 mg Atorvastatin Calcium (Lipitor -) 40 mg PO HS [facility] Last Admin: 02/23/18 22:27 Dose: 40 mg Hydrochlorothiazide (Hctz -) 25 mg PO DAILY [facility] Last Admin: 02/24/18 09:09 Dose: 25 mg Losartan Potassium (Cozaar -) 100 mg PO DAILY [facility] Last Admin: 02/24/18 09:09 Dose: 100 mg Methocarbamol (Robaxin -) 500 mg PO TID [facility] Last Admin: 02/24/18 05:33 Dose: Not Given - Objective Vital Signs: Vital Signs Temperature 98.7 F 02/24/18 09:49 Pulse Rate 83 02/24/18 09:49 Respiratory Rate 20 02/24/18 09:49 Blood Pressure 123/66 02/24/18 09:49 O2 Sat by Pulse Oximetry (%) 96 02/24/18 08:00 HENT: Yes: Atraumatic Neck: Yes: Supple Cardiovascular: Yes: Regular Rate and Rhythm, S1, S2 Respiratory: Yes: CTA Bilaterally Gastrointestinal: Yes: Normal Bowel Sounds, Soft. No: Tenderness Edema: No Additional Findings/Remarks: - Review of Systems Constitutional: denies: Chills, Fever Cardiovascular: reports: Chest Pain, Shortness of Breath. denies: Palpitations Respiratory: reports: Cough, SOB. denies: Hemoptysis, Orthopnea, PND Gastrointestinal: denies: Abdominal Pain, Constipation, Diarrhea, Melena, Nausea , Rectal Bleeding, Vomiting Musculoskeletal: reports: Back Pain Neurological: denies: Dizziness, Headache, Seizure, Syncope Labs: CBC, BMP 02/23/18 09:06 02/23/18 09:06 Problem List - Problems (1) Hypercholesterolemia Code(s): E78.00 - PURE HYPERCHOLESTEROLEMIA, UNSPECIFIED (2) Chest pain Code(s): R07.9 - CHEST PAIN, UNSPECIFIED Qualifiers: Chest pain type: unspecified Qualified Code(s): R07.9 - Chest pain, unspecified (3) Essential hypertension Code(s): I10 - ESSENTIAL (PRIMARY) HYPERTENSION Assessment/Plan 1. Hypertension - labile 2. Chest pain syndrome probably due to above 3. Hypercholesterolemia 4. Vertebral disc disease PLAN: 1. Continue Losartan, HCTZ and Amlodipine 2. Continue Atorvastatin 40 mg once a day instead of Simvastatin 3. Transthoracic echocardiography to assess LV/RV and valvular function - normal left ventricular systolic function, mild TR 4. Analgesics PRN 5. Follow fasting lipid panel, but can be done as outpatient Discharge planning and follow up as outpatient Esvin Craig MD
== END 2018-02-24 14:33 | disposition home or self-care (01) ==
LOC: JER 11:10 → JERBED 15:39 → J4W 02-23 15:43
PROVIDERS: ADMIT Internal Medicine; ATTEND Internal Medicine
DX: I10 Essential (primary) hypertension (principal); R07.89 Other chest pain; E78.5 Hyperlipidemia, unspecified; N83.209 Unspecified ovarian cyst, unspecified side; Z88.0 Allergy status to penicillin; Z88.5 Allergy status to narcotic agent; Z82.49 Family history of ischemic heart disease and other diseases of the circulatory system
CPT/HCPCS: 36415; 71046-TC-FY; 80053; 81003; 82550; 82553; 84484; 85025; 93005; 93010; 93306-TC; 99284-25; G0378

== ENCOUNTER 2018-08-06 15:14 | Emergency (ER) | payer OTHER ==
--- NOTE | 2018-08-06 15:42 | PDOC ---
Rapid Medical Evaluation Time Seen by Provider: 08/06/18 15:40 Medical Evaluation: Allergies Allergy/AdvReac Type Severity Reaction Status Date / Time Anesthetics - Amide Type Allergy Severe Rash Verified 02/26/18 05:03 Anesthetics - Maria A Type- Allergy Severe Rash Verified 02/26/18 05:03 Parabens [Anesthetics - Maria A Type] clindamycin Allergy Severe Rash Verified 02/26/18 05:03 codeine [Codeine] Allergy Severe Rash Verified 02/26/18 05:03 Penicillins Allergy Severe Rash Verified 02/26/18 05:03 08/06/18 15:40 I have performed a brief in-person evaluation of this patient. The patient presents with a chief complaint of: "I felt something crack when I was running" (Pt pointing to right calf) Pertinent physical exam findings: right knee F.R.O.M./ right ankle F.R.O.M./ Neg Marissa's) I have ordered the followin The patient will proceed to the ED for further evaluation. Discharge Disposition - Referrals Referrals: Sherif Sow MD [Primary Care Provider] - - Patient Instructions - Post Discharge Activity
[2018-08-06 15:43] VITALS: BP 109/76; PULSE 73; TEMP 98; BMI 27.4
[2018-08-06] MEDS ORDERED: KETOROLAC TROMETHAMINE 60 MG/2 ML VIAL IM ONE (16:06)
[2018-08-06] MEDS ORDERED: KETOROLAC TROMETHAMINE 60 MG/2 ML VIAL ONE (16:09)
--- NOTE | 2018-08-06 16:14 | PDOC ---
History of Present Illness - General Chief Complaint: Back Pain Stated Complaint: LEG PAIN Time Seen by Provider: 08/06/18 15:40 History Source: Patient Exam Limitations: Clinical Condition - History of Present Illness Initial Comments: 08/06/18 16:07 Patient with history of chronic back pain and bulging back disc present with complain of worsening lower back pain status post fall a week ago. Patient reported she's been followed by orthopedics and had MRI ordered which is pending due to her insurance. Patient on tramadol daily for low back pain which reported is not helping with her pain. Patient also report sudden calf pain while crossing the street this morning and hadn't popping sound in the calf muscle. Patient reported increased pain with ambulation. Denies any other symptoms Timing/Duration: getting worse Past History - Past Medical History Allergies/Adverse Reactions: Allergies Allergy/AdvReac Type Severity Reaction Status Date / Time Anesthetics - Amide Type Allergy Severe Rash Verified 08/06/18 15:43 Anesthetics - Maria A Type- Allergy Severe Rash Verified 08/06/18 15:43 Parabens [Anesthetics - Maria A Type] clindamycin Allergy Severe Rash Verified 08/06/18 15:43 codeine [Codeine] Allergy Severe Rash Verified 08/06/18 15:43 Penicillins Allergy Severe Rash Verified 08/06/18 15:43 Home Medications: Ambulatory Orders Losartan Potassium [Cozaar -] 100 mg PO DAILY 03/21/14 Simvastatin [Zocor -] 80 mg PO HS 03/21/14 Hydrochlorothiazide [Hctz -] 25 mg PO DAILY 07/20/15 Methocarbamol [Robaxin -] 500 mg PO TID #30 tablet 05/24/16 Amlodipine Besylate [Norvasc -] 10 mg PO DAILY #30 tablet 02/23/18 Back Brace [Ultra Support] 1 each [facility] DAILY #1 each 08/06/18 Methocarbamol [Robaxin -] 750 mg PO Q8H PRN #20 tablet 08/06/18 Naproxen 500 mg PO BID PRN #30 tablet 08/06/18 Tramadol HCl 50 mg PO BID 08/06/18 COPD: No HTN: Yes Hypercholesterolemia: Yes - Family Disease History Family Disease History: Heart Disease: Father ([place]), Other: Mother (HTN), Brother (HTN), Sister (HTN) - Reproductive History Uterine Fibroids: Yes - Immunization History Immunization Up to Date: No - Suicide/Smoking/Psychosocial Hx Smoking Status: No Smoking History: Never smoked Have you smoked in the past 12 months: No Number of Cigarettes Smoked Daily: 0 Hx Alcohol Use: No Drug/Substance Use Hx: No Substance Use Type: None Review of Systems - Review of Systems Able to Perform ROS?: Yes Is the patient limited Ukrainian proficient: No Constitutional: No: Weakness Respiratory: No: Symptoms reported Cardiac (ROS): No: Symptoms Reported ABD/GI: No: Symptoms Reported Musculoskeletal: Yes: See HPI, Back Pain (lower back), Muscle Pain (right calf pain). No: Muscle Weakness, Joint Stiffness Neurological: No: Numbness, Paresthesia, Tingling, Weakness All Other Systems: Reviewed and Negative *Physical Exam - Vital Signs Last Vital Signs Temp Pulse Resp BP Pulse Ox 98 F 73 18 109/76 98 08/06/18 15:39 08/06/18 15:39 08/06/18 15:39 08/06/18 15:39 08/06/18 15:39 - Physical Exam Comments: 08/06/18 16:10 GENERAL: Well developed, well nourished. Awake and alert. No acute distress. CARDIOVASCULAR: Regular rate and rhythm. No murmurs, rubs, or gallops. PULMONARY: No evidence of respiratory distress. Lungs clear to auscultation bilaterally. No wheezing, rales or rhonchi. ABDOMINAL: Soft. Non-tender. Non-distended. No rebound or guarding. No organomegaly. Normoactive bowel sounds MUSCULOSKELETAL : Moderate tenderness over bilateral paravertebral muscle of L2- S1 and spine of L4 to L6. Mild tenderness to right calf muscle. No increased warmth. Negative Homans sign. No bony deformities EXTREMITIES: No cyanosis. No clubbing. No edema. mild calf tenderness. Negative Homans sign. negative solano test SKIN: Warm and dry. Normal capillary refill. No rashes. No jaundice. NEUROLOGICAL: Alert, awake, appropriate. No motor deficits in the lower extremities. Gait is normal without ataxia. PSYCHIATRIC: Cooperative. Good eye contact. Appropriate mood and affect. General Appearance: Yes: Nourished, Appropriately Dressed, Mild Distress ED Treatment Course - RADIOLOGY Radiology Studies Ordered: Category Date Time Status LEG TIB/FIB-RIGHT [RAD] Stat Radiology 08/06/18 16:04 Ordered SPINE-LUMBAR SACRAL [RAD] Stat Radiology 08/06/18 16:04 Ordered Medical Decision Making - Medical Decision Making 08/06/18 16:45 Patient with history of chronic back pain present with complain of worsening low back pain status post fall a week ago. Patient also with complain of right calf pain since yesterday after running to cross the street with increased pain with ambulation. Exams significant for only mild tenderness to calf muscle with no evidence of Achilles tendon rupture or evidence of DVT on exam. X-ray of right leg and lumbosacral shows no acute pathology. Patient is stable for home discharge on muscle relaxer and NSAIDs with orthopedics follow-up *DC/Admit/Observation/Transfer Diagnosis at time of Disposition: Muscle spasm of right calf Lumbago Qualifiers: Chronicity: acute Back pain laterality: bilateral Sciatica presence: without sciatica Qualified Code(s): M54.5 - Low back pain - Discharge Dispostion Disposition: HOME Condition at time of disposition: Stable Decision to Admit order: No - Prescriptions Prescriptions: Back Brace [Ultra Support] 1 each [facility] DAILY #1 each Methocarbamol [Robaxin -] 750 mg PO Q8H PRN #20 tablet PRN Reason: Back Pain Naproxen 500 mg PO BID PRN #30 tablet PRN Reason: Back Pain - Referrals Referrals: Sherif Sow MD [Primary Care Provider] - Harrison Mijares MD [Staff Physician] - - Patient Instructions Printed Discharge Instructions: DI for Low Back Pain Additional Instructions: Take medications as prescribed. Follow up with referred orthopedics as soon as possible - Post Discharge Activity
== END 2018-08-06 16:58 | disposition home or self-care (01) ==
LOC: JERFT 15:14
PROC: 3E0233Z Introduction of Anti-inflammatory into Muscle, Percutaneous Approach (ICD-10-PCS; principal; 2018-08-06)
DX: M54.5 Low back pain (principal); G89.29 Other chronic pain; I10 Essential (primary) hypertension; E78.00 Pure hypercholesterolemia, unspecified
CPT/HCPCS: 72100-TC-FY; 73590-TC-RT-FY; 99281-25

== ENCOUNTER 2018-12-29 21:09 | Emergency (ER) | payer OTHER ==
--- NOTE | 2018-12-29 21:16 | PDOC ---
Rapid Medical Evaluation Time Seen by Provider: 12/29/18 21:12 Medical Evaluation: Allergies Allergy/AdvReac Type Severity Reaction Status Date / Time Anesthetics - Amide Type Allergy Severe Rash Verified 08/06/18 15:43 Anesthetics - Maria A Type- Allergy Severe Rash Verified 08/06/18 15:43 Parabens [Anesthetics - Maria A Type] clindamycin Allergy Severe Rash Verified 08/06/18 15:43 codeine [Codeine] Allergy Severe Rash Verified 08/06/18 15:43 Penicillins Allergy Severe Rash Verified 08/06/18 15:43 12/29/18 21:12 I have performed a brief in-person evaluation of this patient. The patient presents with a chief complaint of: LBP with L leg radiculopathy, No loss of bowel or bladder, no saddle numbness no systemic symptoms since yesterday Pertinent physical exam findings: No gross deficits ambulates I have ordered the following:nothing s/p hysterectomy The patient will proceed to the ED for further evaluation. Discharge Disposition - Diagnosis Lower back pain - Referrals - Patient Instructions - Post Discharge Activity
[2018-12-29 21:17] VITALS: BP 163/84; PULSE 95; TEMP 98.4; BMI 28.3
--- NOTE | 2018-12-29 22:13 | PDOC ---
History of Present Illness - General Chief Complaint: Back Pain Stated Complaint: BACK PAIN Time Seen by Provider: 12/29/18 21:12 Past History - Travel Traveled outside of the country in the last 30 days: No Close contact w/someone who was outside of country & ill: No - Past Medical History Allergies/Adverse Reactions: Allergies Allergy/AdvReac Type Severity Reaction Status Date / Time Anesthetics - Amide Type Allergy Severe Rash Verified 12/29/18 21:15 Anesthetics - Maria A Type- Allergy Severe Rash Verified 12/29/18 21:15 Parabens [Anesthetics - Maria A Type] clindamycin Allergy Severe Rash Verified 12/29/18 21:15 codeine [Codeine] Allergy Severe Rash Verified 12/29/18 21:15 Penicillins Allergy Severe Rash Verified 12/29/18 21:15 Home Medications: Ambulatory Orders Losartan Potassium [Cozaar -] 100 mg PO DAILY 03/21/14 Simvastatin [Zocor -] 80 mg PO HS 03/21/14 Hydrochlorothiazide [Hctz -] 25 mg PO DAILY 07/20/15 Methocarbamol [Robaxin -] 500 mg PO TID #30 tablet 05/24/16 Amlodipine Besylate [Norvasc -] 10 mg PO DAILY #30 tablet 02/23/18 Back Brace [Ultra Support] 1 each MC DAILY #1 each 08/06/18 Methocarbamol [Robaxin -] 750 mg PO Q8H PRN #20 tablet 08/06/18 Naproxen 500 mg PO BID PRN #30 tablet 08/06/18 Tramadol HCl 50 mg PO BID 08/06/18 Methocarbamol [Robaxin -] 500 mg PO BID #14 tablet 12/29/18 Naproxen 500 mg PO BID #30 tablet 12/29/18 COPD: No HTN: Yes Hypercholesterolemia: Yes Other medical history: Bulging disc - Family Disease History Family Disease History: Heart Disease: Father ([place]), Other: Mother (HTN), Brother (HTN), Sister (HTN) - Reproductive History Uterine Fibroids: Yes - Immunization History Immunization Up to Date: No - Suicide/Smoking/Psychosocial Hx Smoking Status: No Smoking History: Never smoked Have you smoked in the past 12 months: No Number of Cigarettes Smoked Daily: 0 Information on smoking cessation initiated: No Hx Alcohol Use: No Drug/Substance Use Hx: No Substance Use Type: None Review of Systems - Review of Systems Able to Perform ROS?: Yes Comments:: 12/29/18 22:42 CONSTITUTIONAL: Absent: fever, chills, diaphoresis, generalized weakness, malaise, loss of appetite GASTROINTESTINAL: Absent: abdominal pain, abdominal distension, nausea, vomiting, diarrhea, constipation, melena, hematochezia GENITOURINARY: Absent: dysuria, frequency, urgency, hesitancy, hematuria, flank pain, genital pain MUSCULOSKELETAL: Present: low back pain Absent: arthralgia, joint swelling SKIN: Absent: rash, itching, pallor NEUROLOGIC: Absent: headache, focal weakness or paresthesias, dizziness, unsteady gait, seizure, mental status changes, bladder or bowel incontinence PSYCHIATRIC: Absent: anxiety, depression, suicidal or homicidal ideation, hallucinations. Is the patient limited Cymro proficient: No *Physical Exam - Vital Signs Last Vital Signs Temp Pulse Resp BP Pulse Ox 98.4 F 95 H 18 163/84 99 12/29/18 21:15 12/29/18 21:15 12/29/18 21:15 12/29/18 21:15 12/29/18 21:15 - Physical Exam Comments: 12/29/18 22:42 GENERAL: Well developed, well nourished. Awake and alert. No acute distress. HEENT: Normocephalic, atraumatic. PERRLA, EOMI. No conjunctival pallor. Sclera are non- icteric. Moist mucous membranes. Oropharynx is clear. NECK: Supple. Full ROM. No JVD. Carotid pulses 2+ and symmetric, without bruits. No thyromegaly. No lymphadenopathy. CARDIOVASCULAR: Regular rate and rhythm. No murmurs, rubs, or gallops. Distal pulses are 2+ and symmetric. PULMONARY: No evidence of respiratory distress. Lungs clear to auscultation bilaterally. No wheezing, rales or rhonchi. ABDOMINAL: Soft. Non-tender. Non-distended. No rebound or guarding. No organomegaly. Normoactive bowel sounds. MUSCULOSKELETAL Normal range of motion at all joints. No bony deformities or tenderness. No CVA tenderness. EXTREMITIES: No cyanosis. No clubbing. No edema. No calf tenderness. SKIN: Warm and dry. Normal capillary refill. No rashes. No jaundice. NEUROLOGICAL: Alert, awake, appropriate. Cranial nerves 2-12 intact. No deficits to light touch and temperature in face, upper extremities and lower extremities. No motor deficits in the in face, upper extremities and lower extremities. Normoreflexic in the upper and lower extremities. Normal speech. Toes are down- going bilaterally. Gait is normal without ataxia. PSYCHIATRIC: Cooperative. Good eye contact. Appropriate mood and affect. Moderate Sedation - Procedure Monitoring Vital Signs: Procedure Monitoring Vital Signs Temperature 98.4 F 12/29/18 21:15 Pulse Rate 95 H 12/29/18 21:15 Respiratory Rate 18 12/29/18 21:15 Blood Pressure 163/84 12/29/18 21:15 O2 Sat by Pulse Oximetry (%) 99 12/29/18 21:15 Medical Decision Making - Medical Decision Making 12/29/18 22:42 -Pt with TTP of the L paraspinous muscles, L3-L5, with palpable knot consistent with muscle spasm. -No trauma, or fever. No saddle anesthesia or bladder/bowel incontinence. No CVA tenderness. -Pt is neurologically intact on exam with no focal findings. -Toradol given with relief of symptoms -DC home. Ortho follow up given for if symptoms do not resolve. -I discussed the physical exam findings, ancillary test results and final diagnoses with the patient. I answered all of the patient's questions. The patient was satisfied with the care received and felt comfortable with the discharge plan and treatment plan. The Patient agrees to follow up with the primary care physician/specialist within 24-72 hours. Return precautions were given. *DC/Admit/Observation/Transfer Diagnosis at time of Disposition: Lower back pain Qualifiers: Chronicity: acute Back pain laterality: left Sciatica presence: without sciatica Qualified Code(s): M54.5 - Low back pain - Discharge Dispostion Disposition: HOME Condition at time of disposition: Stable Decision to Admit order: No - Referrals Referrals: Justin Lozano MD, [facility] [Staff Physician] - - Patient Instructions Printed Discharge Instructions: DI for Low Back Pain Additional Instructions: You have low back pain due to a muscle spasm. Please take the naproxen as directed. You were also prescribed Robaxin. Please take this medication twice a day for one week. Do not drive after taking this medication as it may make you sleepy. You may use warm compresses on your back to help with her symptoms. Please follow-up with your primary care doctor. If your symptoms do not resolve in 3-5 days, follow-up with orthopedics. A referral has been provided for you. Follow up with Dr. Sow for your MRI Return to the emergency department if you have worsening back pain, bladder or bowel incontinence, numbness and tingling in her legs, changes in the way you walk, or any new or worsening symptoms. - Post Discharge Activity Forms/Work/School Notes: Back to Work
[2018-12-29] MEDS ORDERED: CYCLOBENZAPRINE HCL 10 MG TABLET (FP) PO ONE (22:27)
[2018-12-29] MEDS ORDERED: KETOROLAC TROMETHAMINE 60 MG/2 ML VIAL IM ONE (22:27)
[2018-12-29] MEDS ORDERED: CYCLOBENZAPRINE HCL 10 MG TABLET (FP) ONE (22:37)
[2018-12-29] MEDS ORDERED: KETOROLAC TROMETHAMINE 60 MG/2 ML VIAL ONE (22:37)
== END 2018-12-29 22:48 | disposition home or self-care (01) ==
LOC: JERFT 21:09 → JER 21:09 → JERFT 22:48
PROC: 3E0233Z Introduction of Anti-inflammatory into Muscle, Percutaneous Approach (ICD-10-PCS; principal; 2018-12-29)
DX: M62.830 Muscle spasm of back (principal); I10 Essential (primary) hypertension; E78.00 Pure hypercholesterolemia, unspecified; Z88.0 Allergy status to penicillin; Z88.1 Allergy status to other antibiotic agents; Z88.8 Allergy status to other drugs, medicaments and biological substances
CPT/HCPCS: 99281-25

== ENCOUNTER 2021-10-17 17:01 | Emergency (ER) | payer OTHER ==
[2021-10-17 17:16] VITALS: TEMP 98.1; BMI 26.7
[2021-10-17] MEDS ORDERED: KETOROLAC TROMETHAMINE 30 MG/1 ML VIAL IM ONE (20:20)
[2021-10-17] MEDS ORDERED: KETOROLAC TROMETHAMINE 30 MG/1 ML VIAL ONE (20:46)
[2021-10-17 23:12] VITALS: BP 140/76; PULSE 78
== END 2021-10-17 23:11 | disposition home or self-care (01) ==
LOC: JER 17:01
PROC: 3E0233Z Introduction of Anti-inflammatory into Muscle, Percutaneous Approach (ICD-10-PCS; principal; 2021-10-17)
DX: M54.50 Low back pain, unspecified (principal)
CPT/HCPCS: 71046-TC-FY; 99284-25

== ENCOUNTER 2022-03-01 04:17 | Emergency (ER) | payer OTHER ==
[2022-03-01 04:53] VITALS: BMI 28.3
[2022-03-01] MEDS ORDERED: guaiFENesin/D-METHORPHAN HB 10 ML UNIT-DOSE CUPS PO ONE (06:14)
[2022-03-01] MEDS ORDERED: guaiFENesin/D-METHORPHAN HB 10 ML UNIT-DOSE CUPS ONE (06:18)
[2022-03-01] MEDS ORDERED: AZITHROMYCIN 250 MG TABLET PO ONE (07:03)
[2022-03-01] MEDS ORDERED: AZITHROMYCIN 250 MG TABLET ONE (07:21)
[2022-03-01 07:25] VITALS: BP 130/97; PULSE 78; TEMP 97.6
[2022-03-02 23:11] LABS: SARS-CoV-2 NAA Detected (Not Detected)
== END 2022-03-01 07:29 | disposition home or self-care (01) ==
LOC: JER 04:17
DX: U07.1 COVID-19 (principal); J40 Bronchitis, not specified as acute or chronic
CPT/HCPCS: 71046-TC-FY; 93005; 93010; 99285-25; C9803-CS; U0003; U0005

== ENCOUNTER 2022-03-05 15:03 | Emergency (ER) | payer OTHER ==
[2022-03-05 15:11] VITALS: BP 169/81; PULSE 85; TEMP 97.7; BMI 26.7
[2022-03-05] MEDS ORDERED: ALBUTEROL SO4 2.5/IPRATROPIUM 0.5 INH SOL 3 ML VIAL.NEB. NEB ONE ×2 (16:21→17:03)
[2022-03-05] MEDS ORDERED: ACETAMINOPHEN 325 MG TABLET (FP) PO ONE (16:44)
[2022-03-05] MEDS ORDERED: IBUPROFEN 600 MG TABLET (FP) PO ONE ×2 (16:44→16:54)
[2022-03-05] MEDS ORDERED: ACETAMINOPHEN 325 MG TABLET (FP) ONE (16:54)
== END 2022-03-05 18:04 | disposition home or self-care (01) ==
LOC: JER 15:03
PROC: 3E0F7GC Introduction of Other Therapeutic Substance into Respiratory Tract, Via Natural or Artificial Opening (ICD-10-PCS; principal; 2022-03-05)
DX: U07.1 COVID-19 (principal)
CPT/HCPCS: 71045-TC-FY; 99283-25

== ENCOUNTER 2022-03-18 13:45 | Emergency (ER) | payer OTHER ==
[2022-03-18 14:01] VITALS: BP 141/75; PULSE 91; TEMP 97.6; BMI 27.1
[2022-03-18 17:08] LABS: BASO % 0.3 % (0-2.0); EOS % 0.5 % (0-4.5); HEMATOCRIT 37.9 % (32.4-45.2); HEMOGLOBIN 13.1 GM/dL (10.7-15.3); LYMPH % 43.4 % (8-40); MCH 28.7 pg (25.7-33.7); MCHC 34.6 g/dl (32.0-36.0); MEAN PLT VOLUME 9.1 fl (7.5-11.1); MONO % 5.9 % (3.8-10.2); NEUT % 49.9 % (42.8-82.8); PLATELET COUNT 260 10^3/uL (134-434); RBC 4.56 M/mm3 (3.60-5.2); RDW 12.7 % (11.6-15.6); WHITE BLOOD COUNT 5.6 K/mm3 (4.0-10.0)
[2022-03-18 17:13] LABS: INR 0.88 (0.83-1.09); PROTHROMBIN TIME (PATIENT) 10.1 SEC (9.7-13.0)
[2022-03-18 17:33] LABS: ALBUMIN 4.2 g/dl (3.4-5.0); BLOOD UREA NITROGEN 12.9 mg/dL (7-18); CALCIUM 9.8 mg/dL (8.5-10.1)
[2022-03-18 17:36] LABS: CREATININE 0.8 mg/dL (0.55-1.3)
[2022-03-18 17:38] LABS: BILIRUBIN,TOTAL 0.4 mg/dL (0.2-1); TOT PROT 7.3 g/dl (6.4-8.2)
== END 2022-03-18 18:22 | disposition home or self-care (01) ==
LOC: JER 13:45
DX: U07.1 COVID-19 (principal); R53.83 Other fatigue
CPT/HCPCS: 36415; 80053; 84484; 85025; 85610; 85730; 93005; 93010; 99284-25

== ENCOUNTER 2022-05-12 09:55 | Emergency (ER) | payer OTHER ==
[2022-05-12 10:18] VITALS: BP 121/70; PULSE 68; TEMP 99; BMI 26.7
[2022-05-12] MEDS ORDERED: KETOROLAC TROMETHAMINE 30 MG/1 ML VIAL IM ONE (11:19)
[2022-05-12] MEDS ORDERED: KETOROLAC TROMETHAMINE 30 MG/1 ML VIAL ONE (11:24)
== END 2022-05-12 14:20 | disposition home or self-care (01) ==
LOC: JERFT 09:55
PROC: 3E023GC Introduction of Other Therapeutic Substance into Muscle, Percutaneous Approach (ICD-10-PCS; principal; 2022-05-12)
DX: M54.42 Lumbago with sciatica, left side (principal)
CPT/HCPCS: 72100-TC-FY; 73560-TC-LT-FY; 96372; 99284-25

== ENCOUNTER 2022-10-22 09:54 | Emergency (ER) | payer OTHER ==
[2022-10-22 10:18] VITALS: BP 153/74; PULSE 81; RESP 16; TEMP 98.3; BMI 26.7
[2022-10-22] MEDS ORDERED: KETOROLAC TROMETHAMINE 30 MG/1 ML VIAL IM ONE (10:57)
[2022-10-22] MEDS ORDERED: CYCLOBENZAPRINE HCL 10 MG TABLET (FP) PO ONE (10:57)
[2022-10-22] MEDS ORDERED: ACETAMINOPHEN 500 MG TABLET (FP) PO ONE (10:57)
[2022-10-22] MEDS ORDERED: CYCLOBENZAPRINE HCL 10 MG TABLET (FP) ONE (11:01)
[2022-10-22] MEDS ORDERED: KETOROLAC TROMETHAMINE 30 MG/1 ML VIAL ONE (11:01)
[2022-10-22] MEDS ORDERED: ACETAMINOPHEN 500 MG TABLET (FP) ONE (11:01)
== END 2022-10-22 12:36 | disposition home or self-care (01) ==
LOC: JERFT 09:54
PROC: 3E023GC Introduction of Other Therapeutic Substance into Muscle, Percutaneous Approach (ICD-10-PCS; principal; 2022-10-22)
DX: S46.911A Strain of unspecified muscle, fascia and tendon at shoulder and upper arm level, right arm, initial encounter (principal); X50.9XXA Other and unspecified overexertion or strenuous movements or postures, initial encounter
CPT/HCPCS: 73030-TC-RT-FY; 99284-25

== ENCOUNTER 2022-10-23 20:40 | Emergency (ER) | payer OTHER ==
[2022-10-23 20:53] VITALS: BP 135/78; PULSE 82; RESP 20; TEMP 98.1; BMI 26.7
== END 2022-10-23 22:00 | disposition left against medical advice (07) ==
LOC: JERFT 20:40
DX: M79.601 Pain in right arm (principal)
CPT/HCPCS: 99281-25

== ENCOUNTER 2022-10-24 21:11 | Emergency (ER) | payer OTHER ==
[2022-10-24 21:20] VITALS: BP 163/86; PULSE 96; RESP 18; TEMP 99.5; BMI 26.7
[2022-10-24] MEDS ORDERED: KETOROLAC TROMETHAMINE 30 MG/1 ML VIAL IM ONE (22:03)
[2022-10-24] MEDS ORDERED: KETOROLAC TROMETHAMINE 30 MG/1 ML VIAL ONE (22:05)
== END 2022-10-24 22:12 | disposition home or self-care (01) ==
LOC: FER 21:11
PROC: 3E023GC Introduction of Other Therapeutic Substance into Muscle, Percutaneous Approach (ICD-10-PCS; principal; 2022-10-24)
DX: S46.911A Strain of unspecified muscle, fascia and tendon at shoulder and upper arm level, right arm, initial encounter (principal); Y99.8 Other external cause status
CPT/HCPCS: 99284-25

== ENCOUNTER 2022-10-27 12:09 | Emergency (ER) | payer OTHER ==
[2022-10-27 12:41] VITALS: BP 135/78; PULSE 93; RESP 18; TEMP 98; BMI 25.7
[2022-10-27] MEDS ORDERED: LIDOCAINE 5% TOPICAL PATCH TP ONE (14:46)
[2022-10-27] MEDS ORDERED: ACETAMINOPHEN 500 MG TABLET (FP) PO ONE (14:46)
[2022-10-27] MEDS ORDERED: KETOROLAC TROMETHAMINE 30 MG/1 ML VIAL IM ONE (14:46)
[2022-10-27] MEDS ORDERED: ACETAMINOPHEN 500 MG TABLET (FP) ONE (14:49)
[2022-10-27] MEDS ORDERED: KETOROLAC TROMETHAMINE 30 MG/1 ML VIAL ONE (14:49)
[2022-10-27] MEDS ORDERED: LIDOCAINE 5% TOPICAL PATCH ONE (14:49)
[2022-10-27] MEDS ORDERED: LIDOCAINE PATCH REMOVAL MC SCH (22:00)
== END 2022-10-27 15:05 | disposition home or self-care (01) ==
LOC: JERFT 12:09
PROC: 3E023GC Introduction of Other Therapeutic Substance into Muscle, Percutaneous Approach (ICD-10-PCS; principal; 2022-10-27)
DX: S49.91XA Unspecified injury of right shoulder and upper arm, initial encounter (principal); X50.9XXA Other and unspecified overexertion or strenuous movements or postures, initial encounter
CPT/HCPCS: 99284-25

== ENCOUNTER 2023-03-18 14:45 | Emergency (ER) | payer OTHER ==
[2023-03-18 14:55] VITALS: BP 122/72; PULSE 72; RESP 18; TEMP 98.2; BMI 26.4
[2023-03-18 16:19] LABS: EPI CELLS 13 /uL (0-25.1); HYALINE CASTS 0 /uL (0-3.1); URINE APPEARANCE TURBID; URINE BACTERIA >9,000 /uL (0-1359); URINE BILIRUBIN NEGATIVE (NEGATIVE); URINE COLOR YELLOW; URINE GLUCOSE (UA) NEGATIVE (NEGATIVE); URINE KETONE NEGATIVE (NEGATIVE); URINE LEUK ESTERASE 3+ (NEGATIVE); URINE NITRITE POSITIVE (NEGATIVE); URINE PROTEIN 1+ (NEGATIVE); URINE RBC 110 /uL (0-23.9); URINE UROBILINOGEN 0.2 mg/dL (0.2-1.0); URINE WBC 5431 /uL (0-25.8)
== END 2023-03-18 16:56 | disposition home or self-care (01) ==
LOC: JERFT 14:45
DX: R30.0 Dysuria (principal); R30.9 Painful micturition, unspecified; R10.30 Lower abdominal pain, unspecified; N30.00 Acute cystitis without hematuria
CPT/HCPCS: 81003; 87086; 87186; 99283-25

== ENCOUNTER 2023-06-12 09:55 | Day surgery (SDC) | payer OTHER ==
[2023-06-02 09:12] VITALS: BMI 26.0
[2023-06-12] MEDS ORDERED: BUPIVACAINE HCL/EPINEPHRINE/PF 30 ML VIAL IJ ONE (11:20)
[2023-06-12] MEDS ORDERED: FENTANYL CITRATE/PF 50 MCG/ML VIAL ONE (11:20)
[2023-06-12] MEDS ORDERED: MIDAZOLAM HCL 2 MG/2 ML SINGLE DOSE VIAL ONE (11:20)
[2023-06-12] MEDS ORDERED: BUPIVACAINE HCL/PF 0.5% (5 MG/ML) 30 ML VIAL IJ ONE (11:20)
[2023-06-12] MEDS ORDERED: PROPOFOL 20 ML ONE (12:10)
[2023-06-12] MEDS ORDERED: oxyCODONE HCL 5 MG TABLET PO PRN (12:36)
[2023-06-12] MEDS ORDERED: ACETAMINOPHEN 1000 MG/100 ML BAG IVPB PRN (12:36)
[2023-06-12] MEDS ORDERED: ONDANSETRON 4 MG/2 ML VIAL IVPUSH PRN (12:36)
[2023-06-12] MEDS ORDERED: LACTATED RINGERS SOLUTION 1,000 ML IV SCH (12:45)
[2023-06-12 16:23] VITALS: RESP 18; TEMP 97.7
[2023-06-12 16:57] VITALS: BP 114/67; PULSE 67
== END 2023-06-12 16:25 | disposition home or self-care (01) ==
LOC: FASU 09:55
PROVIDERS: ATTEND Orthopaedic Surgery
PROC: 0RBJ4ZZ Excision of Right Shoulder Joint, Percutaneous Endoscopic Approach (ICD-10-PCS; principal; 2023-06-12 12:30)
PROC: 0RNJ4ZZ Release Right Shoulder Joint, Percutaneous Endoscopic Approach (ICD-10-PCS; 2023-06-12 12:30)
PROC: 0LS30ZZ Reposition Right Upper Arm Tendon, Open Approach (ICD-10-PCS; 2023-06-12 12:30)
DX: S46.011D Strain of muscle(s) and tendon(s) of the rotator cuff of right shoulder, subsequent encounter (principal); M75.21 Bicipital tendinitis, right shoulder; S43.431D Superior glenoid labrum lesion of right shoulder, subsequent encounter; M65.811 Other synovitis and tenosynovitis, right shoulder; M75.51 Bursitis of right shoulder; M75.01 Adhesive capsulitis of right shoulder
CPT/HCPCS: 82962; 88304-TC; 94760; C1713

== ENCOUNTER 2023-11-12 06:43 | Emergency (ER) | payer OTHER ==
[2023-11-12 06:51] VITALS: BP 149/91; PULSE 81; RESP 18; TEMP 98.4; BMI 25.4
[2023-11-12] MEDS ORDERED: FAMOTIDINE 20 MG/50 ML IVPB 20 MG/50 ML MG IVPB ONE ×2 (08:05→08:24)
[2023-11-12] MEDS ORDERED: ONDANSETRON 4 MG/2 ML VIAL IVPUSH ONE (08:05)
[2023-11-12] MEDS ORDERED: ACETAMINOPHEN 1000 MG/100 ML BAG IVPB ONE (08:05)
[2023-11-12] MEDS ORDERED: ONDANSETRON 4 MG/2 ML VIAL ONE (08:24)
[2023-11-12] MEDS ORDERED: ACETAMINOPHEN INJECTION 100 ML IVPB ONE (08:24)
[2023-11-12 08:54] LABS: BASO % 0.1 % (0-2.0); EOS % 0.6 % (0-4.5); HEMATOCRIT 42.9 % (32.4-45.2); HEMOGLOBIN 14.2 GM/dL (10.7-15.3); LYMPH % 10.5 % (8-40); MCH 28.4 pg (25.7-33.7); MCHC 33.1 g/dl (32.0-36.0); MEAN CELL VOLUME 85.9 fl (80-96); MEAN PLT VOLUME 9.7 fl (7.5-11.1); MONO % 3.3 % (3.8-10.2); NEUT % 85.5 % (42.8-82.8); PLATELET COUNT 180 10^3/uL (134-434); RDW 13.1 % (11.6-15.6)
[2023-11-12 09:11] LABS: POTASSIUM 4.2 mmol/L (3.5-5.1)
[2023-11-12 09:15] LABS: ALBUMIN 4.2 g/dl (3.4-5.0); BLOOD UREA NITROGEN 12.5 mg/dL (7-18); CALCIUM 9.6 mg/dL (8.5-10.1)
[2023-11-12 09:19] LABS: CREATININE 0.8 mg/dL (0.55-1.3)
[2023-11-12 09:21] LABS: TOT PROT 7.3 g/dl (6.4-8.2)
== END 2023-11-12 11:40 | disposition home or self-care (01) ==
LOC: JER 06:43
PROC: 3E033GC Introduction of Other Therapeutic Substance into Peripheral Vein, Percutaneous Approach (ICD-10-PCS; principal; 2023-11-12)
PROC: 3E033GC Introduction of Other Therapeutic Substance into Peripheral Vein, Percutaneous Approach (ICD-10-PCS; 2023-11-12)
PROC: 3E033GC Introduction of Other Therapeutic Substance into Peripheral Vein, Percutaneous Approach (ICD-10-PCS; 2023-11-12)
DX: R11.2 Nausea with vomiting, unspecified (principal); R42 Dizziness and giddiness; R10.13 Epigastric pain; I10 Essential (primary) hypertension
CPT/HCPCS: 36415; 71046-TC-FY; 80053; 82962; 84484; 85025; 93005; 93010; 99285-25

== ENCOUNTER 2024-02-03 18:42 | Emergency (ER) | payer OTHER ==
[2024-02-03 19:09] VITALS: RESP 19; BMI 25.7
[2024-02-03] MEDS ORDERED: ACETAMINOPHEN INJECTION 100 ML IVPB ONE (19:29)
[2024-02-03] MEDS ORDERED: ONDANSETRON 4 MG/2 ML VIAL ONE (19:29)
[2024-02-03] MEDS: LACTATED RINGERS SOLUTION 1000 ML INFUS.BAG IV ONE (19:48)
[2024-02-03] MEDS: ONDANSETRON 4 MG/2 ML VIAL IVPUSH ONE (19:48)
[2024-02-03] MEDS: ACETAMINOPHEN 1000 MG/100 ML BAG IVPB ONE (19:48)
[2024-02-03] MEDS ORDERED: ALBUTEROL SO4 2.5/IPRATROPIUM 0.5 INH SOL 3 ML VIAL.NEB. NEB ONE (19:54)
[2024-02-03] MEDS: ALBUTEROL SO4 2.5/IPRATROPIUM 0.5 INH SOL 3 ML VIAL.NEB. NEB ONE (19:58)
[2024-02-03 20:15] LABS: BASO % 0.4 % (0-2.0); EOS % 0.1 % (0-4.5); HEMATOCRIT 43.3 % (32.4-45.2); HEMOGLOBIN 14.5 GM/dL (10.7-15.3); LYMPH % 12.4 % (8-40); MCH 28.6 pg (25.7-33.7); MCHC 33.5 g/dl (32.0-36.0); MEAN CELL VOLUME 85.4 fl (80-96); MEAN PLT VOLUME 9.8 fl (7.5-11.1); MONO % 6.6 % (3.8-10.2); NEUT % 80.5 % (42.8-82.8); PLATELET COUNT 206 10^3/uL (134-434); RBC 5.07 M/mm3 (3.60-5.2); RDW 12.9 % (11.6-15.6); WHITE BLOOD COUNT 7.6 K/mm3 (4.0-10.0)
[2024-02-03 20:26] LABS: POTASSIUM 4.5 mmol/L (3.5-5.1)
[2024-02-03 20:28] LABS: BLOOD UREA NITROGEN 7.4 mg/dL (7-18); CALCIUM 9.7 mg/dL (8.5-10.1); MAGNESIUM 2.1 mg/dL (1.8-2.4)
[2024-02-03 20:29] LABS: ALBUMIN 4.2 g/dl (3.4-5.0)
[2024-02-03 20:31] LABS: CREATININE 0.8 mg/dL (0.55-1.3)
[2024-02-03 20:33] LABS: BILIRUBIN,TOTAL 0.5 mg/dL (0.2-1); TOT PROT 7.5 g/dl (6.4-8.2)
[2024-02-03 22:22] VITALS: BP 122/72; PULSE 89; TEMP 97.9
== END 2024-02-03 22:22 | disposition home or self-care (01) ==
LOC: JER 18:42
PROC: 3E030NZ Introduction of Analgesics, Hypnotics, Sedatives into Peripheral Vein, Open Approach (ICD-10-PCS; principal; 2024-02-03)
PROC: 3E030GC Introduction of Other Therapeutic Substance into Peripheral Vein, Open Approach (ICD-10-PCS; 2024-02-03)
PROC: 3E0F7GC Introduction of Other Therapeutic Substance into Respiratory Tract, Via Natural or Artificial Opening (ICD-10-PCS; 2024-02-03)
DX: R05.9 Cough, unspecified (principal); R09.81 Nasal congestion; R53.81 Other malaise; R11.2 Nausea with vomiting, unspecified; R19.7 Diarrhea, unspecified; R53.1 Weakness; R42 Dizziness and giddiness; U07.1 COVID-19
CPT/HCPCS: 0241U-QW; 36415; 71046-TC-FY; 80053; 83690; 83735; 85025; 93005; 93010; 99285-25; J0131

== ENCOUNTER 2024-02-29 11:54 | Emergency (ER) | payer OTHER ==
[2024-02-29 12:02] VITALS: BP 117/70; PULSE 81; RESP 18; TEMP 98.3; BMI 25.7
[2024-02-29 12:52] LABS: EPI CELLS 20 /uL (0-25.1); HYALINE CASTS 1 /uL (0-3.1); PH,URINE 7.5 (5.0-8.0); URINE APPEARANCE Error; URINE BACTERIA >9,000 /uL (0-1359); URINE BILIRUBIN NEGATIVE (NEGATIVE); URINE COLOR DK YELLOW; URINE GLUCOSE (UA) NEGATIVE (NEGATIVE); URINE KETONE TRACE (NEGATIVE); URINE LEUK ESTERASE 3+ (NEGATIVE); URINE NITRITE POSITIVE (NEGATIVE); URINE PROTEIN 2+ (NEGATIVE); URINE RBC 115 /uL (0-23.9); URINE WBC 5320 /uL (0-25.8)
[2024-02-29] MEDS: SODIUM CHLORIDE 0.9% 500 ML INFUS.BAG IV ONE (14:07)
[2024-02-29 14:08] LABS: BASO % 0.2 % (0-2.0); EOS % 0.5 % (0-4.5); HEMATOCRIT 40.4 % (32.4-45.2); HEMOGLOBIN 13.4 GM/dL (10.7-15.3); LYMPH % 28.4 % (8-40); MCH 28.4 pg (25.7-33.7); MCHC 33.1 g/dl (32.0-36.0); MEAN CELL VOLUME 85.9 fl (80-96); MEAN PLT VOLUME 9.1 fl (7.5-11.1); MONO % 5.6 % (3.8-10.2); NEUT % 65.3 % (42.8-82.8); PLATELET COUNT 210 10^3/uL (134-434); RBC 4.71 M/mm3 (3.60-5.2); RDW 13.6 % (11.6-15.6); WHITE BLOOD COUNT 6.7 K/mm3 (4.0-10.0)
[2024-02-29 14:31] LABS: POTASSIUM 4.4 mmol/L (3.5-5.1)
[2024-02-29 14:33] LABS: CALCIUM 9.5 mg/dL (8.5-10.1)
[2024-02-29 14:36] LABS: CREATININE 0.9 mg/dL (0.55-1.3)
[2024-02-29 14:38] LABS: BILIRUBIN,TOTAL 0.4 mg/dL (0.2-1); TOT PROT 7.4 g/dl (6.4-8.2)
== END 2024-02-29 15:03 | disposition home or self-care (01) ==
LOC: JERFT 11:54
DX: N39.0 Urinary tract infection, site not specified (principal); R50.9 Fever, unspecified; R10.33 Periumbilical pain; R35.0 Frequency of micturition; R53.81 Other malaise
CPT/HCPCS: 36415; 80053; 81003; 85025; 87086; 87186; 99284-25